=== PATIENT | female | born 1975 | race Caucasian/White ===

== ENCOUNTER 2016-10-26 06:46 | Day surgery (SDC) | payer BC, OTHER ==
[2016-10-26] VITALS (7 sets, daily range): BP systolic 124–133; BP diastolic 67–81
[~2016-10-26] VITALS: Ht 165.1 cm; Wt 145.1 kg
--- NOTE | ~2016-10-26 | EKG ---
[address] [address] ELECTROCARDIOGRAM REPORT Name: ALLI BARRIOS Room #: DEP [facility]#: [id number] Admission: 10/26/16 Attend Phys: Vikash Aburto MD Discharge: 10/26/16 Date of : 73 Report #: [id number] THIS REPORT FOR: //name// [facility] Test Date: 2016-10-26 Test Time: 12:46:27 Pat Name: ALLI BARRIOS Department: Room: 150 6 Gender: F Social Work Specialist: IRMA : 1975 Requested By: Almas Johnson Order Number: [id number] MD: David Rees Measurements Intervals [place] Rate: 64 P: 32 ME: 198 QRS: 15 QRSD: 94 T: 18 QT: 443 QTc: 457 Interpretive Statements Sinus rhythm Normal tracing No previous ECG available for comparison Electronically Signed On 10-27-2016 8:04:26 CDT by David Rees [email or web address] <ELECTRONICALLY SIGNED> By: David Rees MD, [facility] 10/27/16 0804 1246 1246 David Rees MD, FACC /EPI
--- NOTE | ~2016-10-26 | S ---
[facility] [place] [address] SURGICAL PATH RPT PROCEDURE Name: CHRISTINE BEST Room #: DEP [facility] M.R.#: [id number] Admission: 10/26/16 Date of : 73 Discharge: 10/26/16 Report #: [id number] Path Case #: [id number] PATHOLOGY REPORT COLLECTION DATE: 10/26/2016 RECEIVED DATE: 10/27/2016 SUBMITTING PHYS: Dr. Vikash Aburto OTHER PHYS: Dr. Bravo Blood SPECIMEN(S) RECEIVED: A.Gallbladder * * * * * * * * * * * * FINAL DIAGNOSIS: "Gallbladder," cholecystectomy: - Chronic cholecystitis. - Cholelithiasis. (CLW:mgr; 10/30/2016) PATHOLOGIST: Lissa Jorge M.D. REPORT ELECTRONICALLY SIGNED BY: Lissa Jorge M.D. DATE/TIME: 10/30/2016 21:10 * * * * * * * * * * * * GROSS PATHOLOGY: Received in formalin labeled "Christine Best, gallbladder," is an 8.3 x 3.2 x 2.8 cm, previously opened gallbladder with blue-mejia serosal surfaces. Opening the gallbladder reveals a velvety mucosa and an average wall thickness of 0.1 cm. Calculi are present displaying a light florentino and multifaceted appearance, and no masses are noted grossly. Geoint Analyst sections from the body and fundus are submitted along with the proximal margin in cassette A1. (CAA; 10/27/2016) CLINICAL HISTORY: Gallstones INITIAL CPT CODE(S): A; 14942 Professional services performed by [facility] at [facility] [address] [facility] , [place] [address] Technical services performed by [facility] at [address] [place] [address] [place] [address] SURGICAL PATH RPT PROCEDURE Name: CHRISTINE BEST Room #: DEP [facility] Rafael#: [id number] Admission: 10/26/16 Date of : 73 Discharge: 10/26/16 Report #: [id number] Path Case #: [id number] [place] [address]. [facility] [address] [address] PHONE: [phone] DIRECTOR: Miguel Duvall M.D. * * * END OF REPORT * * *
--- NOTE | ~2016-10-26 | O ---
[facility] [place] [address] OPERATIVE REPORT Name: ALLI BARRIOS Room #: 150-6 [facility]#: [id number] Admission: 10/26/16 Attend Phys: Vikash Aburto MD Discharge: Date of : 73 Report #: [id number] THIS REPORT FOR: //name// CC: Bravo Blodo [facility] Vikash Aburto DATE OF SERVICE: 10/26/2016 SUBJECTIVE: The patient of Dr. Vikash Aburto, Dr. Bravo Dunlap and Dr. Ritika Blood. PREOPERATIVE DIAGNOSES: Cholelithiasis, cholecystitis, biliary colic. POSTOPERATIVE DIAGNOSES: Cholelithiasis, cholecystitis, biliary colic, ovarian cystic mass. PROCEDURE: Laparoscopic cholecystectomy with diagnostic laparoscopy. SURGEON: Vikash Aburto MD ANESTHESIA: General. DESCRIPTION OF PROCEDURE: The patient was brought to the operating room and placed on operative table in the supine position. Sequential compression devices were in place for deep venous thrombosis prophylaxis. Appropriate preoperative dose of antibiotics was given. She underwent a general endotracheal anesthesia and the abdomen was then prepped and draped in a sterile fashion. Skin and subcutaneous tissue around the umbilicus was then infiltrated with 0.5% Marcaine. Infraumbilical skin incision was then performed using #11 scalpel blade. Hemostasis obtained using electrocautery. Dissection was carried down through subcutaneous tissue to the fascia, which was then grasped between 2 Sean clamps and incised with the curved De La Torre scissors. Peritoneum was entered and a pursestring suture of 0 Vicryl was then placed in the fascia. A 12 mm disposable Rocío port was inserted through the opening and held into place with the balloon port and the pursestring suture. Pneumoperitoneum was obtained to a level of 10-15 mmHg. Laparoscope was inserted through this port and exploration was performed, which revealed a thickened dilated gallbladder with numerous stones. Of note, there was a cystic mass associated with the ovary in the pelvis. Pictures were taken of the mass. After completion of the exploration, the gallbladder was then grasped and retracted superiorly and the cystic duct and artery were dissected free. Cystic artery was dissected free and doubly clipped on each side and divided with the scissors. The cystic duct [address] [address] OPERATIVE REPORT Name: ALLI BARRIOS Room #: 150-6 [facility]#: [id number] Admission: 10/26/16 Attend Phys: Vikash Aburto MD Discharge: Date of : 73 Report #: [id number] was then dissected free and the cystic common bile duct junction was clearly identified. The cystic duct was then triply clipped on the common bile duct side and doubly clipped on the gallbladder side and divided with the scissors. The gallbladder was then dissected free from the bed using the hook electrocautery. Prior to completing the dissection, the gallbladder was retracted superiorly and the bed inspected for hemostasis, which was obtained using electrocautery and found to be intact. The gallbladder was then transected and placed in an EndoCatch bag due to the numerous stones and then brought out through the periumbilical port and sent as specimen to pathology. Port was then returned to the abdomen. The area was then copiously irrigated with warm saline solution, which was suctioned free. Hemostasis was checked and found to be intact. The ports were then all removed under direct visualization and hemostasis intact at each port site. Pneumoperitoneum was released and periumbilical port was then also removed under direct visualization, hemostasis intact at that port site as well. Periumbilical fascia was then closed using the 0 Vicryl pursestring suture. Skin was then closed using interrupted vertical mattress and simple 5-0 nylon sutures and the wound was dressed with Band-Aids. The patient was then awakened from the general endotracheal anesthesia, extubated, and taken to recovery room in good condition. Estimated blood loss was approximately 10 mL and the patient tolerated the procedure well. All sponge, lap and instrument counts were correct x 2. A copy of the pictures was given to the patient's family so that she can be seen for gynecological consultation on this ovarian cystic mass. <ELECTRONICALLY SIGNED> By: Vikash Aburto MD 10/26/16 1542 1445 1503 Vikash Aburto MD /nt
[~2016-10-26 06:46] MED LIST: LABETALOL 100100 MG PO; PRILOSEC OTC20 MG PO; TRANDATE 200 M200 M1 PO
[2016-10-26 12:24] LABS: HEMOGLOBIN 12.1 gm/dL (12.0-15.0); MCH 26.8 pg (26.0-34.0); MCHC 31.8 g/dL (28.0-37.0); MCV 84.1 fL (80.0-100.0); RBC 4.51 mil/uL (4.20-5.00); RDW 22.2 % (10.5-14.5); WBC 9.2 thou/uL (4.0-11.0)
[2016-10-26] MEDS ORDERED: NORCO 5-325 TA1 EACH PO (13:04)
== END 2016-10-26 22:10 | disposition home or self-care (01) ==
LOC: OR 06:46 → TBA 06:46 → OR 10:56 → 4E 15:52 → OR 22:10
PROVIDERS: Anesthesiology
DX: K80.64 Calculus of gallbladder and bile duct with chronic cholecystitis without obstruction (principal); I10 Essential (primary) hypertension; D64.9 Anemia, unspecified; Z98.890 Other specified postprocedural states; K27.9 Peptic ulcer, site unspecified, unspecified as acute or chronic, without hemorrhage or perforation
CPT/HCPCS: 50010; 50101; 50411; 50555; 50558; 51474; 51489; 52266; 53312; 53314; 56462; 56524; 56528; 62110; 62900; 70005